=== PATIENT | male | born 1970 | race Hispanic/Latino ===

== ENCOUNTER 2018-09-02 15:28 | Emergency (ER) | payer OTHER ==
[2018-09-02 15:58] VITALS: BMI 37.5
[2018-09-02 15:59] VITALS: O2SAT 99
[2018-09-02] MEDS ORDERED: Sodium Chloride 0.9% 1,000 ML IV STA (16:56)
[2018-09-02 17:14] LABS: BASO # 0.1 K/uL (0.0-0.2); BASO % 0.9 % (0.0-2.0); EOS # 0.4 K/uL (0.0-0.7); EOS % 5.7 % (0.0-4.0); HEMOGLOBIN 14.7 g/dL (12.0-18.0); LYMPH % 28.2 % (20.0-40.0); MEAN CELL VOLUME 86.4 fl (80.0-94.0); MEAN CORPUSCULAR HEMOGLOBIN 28.9 pg (27.0-31.0); MEAN CORPUSCULAR HGB CONC 33.4 g/dL (33.0-37.0); MEAN PLATELET VOLUME 7.8 fl (7.2-11.7); MONO # 0.8 K/uL (0.0-0.8); MONO % 11.8 % (0.0-10.0); NEUT # 3.8 K/uL (1.8-7.0); NEUT % 53.4 % (50.0-75.0); NRBC % 0.1 % (0.0-0.0); RBC 5.1 Mil/uL (4.40-5.90); RED CELL DISTRIBUTION WIDTH 13.5 % (11.5-14.5); WHITE BLOOD COUNT 7.2 K/uL (4.8-10.8)
[2018-09-02 17:25] LABS: VENOUS BLOOD GAS BASE EXCESS 1.9 mmol/L (0.0-2.0); VENOUS BLOOD GAS PCO2 50 mmHg (40-60); VENOUS BLOOD GAS PO2 30 mm/Hg (30-55); VENOUS BLOOD PH 7.36 (7.32-7.43)
[2018-09-02 17:26] LABS: ALB/GLOB RATIO 1.6 (1.0-2.1); ALBUMIN 4.4 g/dL (3.5-5.0); ALT/SGPT 58 U/L (21-72); AST/SGOT 28 U/L (17-59); BLOOD UREA NITROGEN 17 mg/dl (9-20); CALCIUM 9.2 mg/dL (8.4-10.2); GFR NON-AFRICAN AMERICAN > 60
--- NOTE | 2018-09-02 18:19 | RAD ---
Date of service: 09/02/2018 HISTORY: cough COMPARISON: No prior. TECHNIQUE: Chest PA and lateral views FINDINGS: LUNGS: No active pulmonary disease. PLEURA: No significant pleural effusion identified. No pneumothorax apparent. CARDIOVASCULAR: No aortic atherosclerotic calcification present. Normal cardiac size. No pulmonary vascular congestion. OSSEOUS STRUCTURES: No significant abnormalities. VISUALIZED UPPER ABDOMEN: Normal. OTHER FINDINGS: None. IMPRESSION: No active disease.
--- NOTE | 2018-09-02 18:29 | ED PDOC ---
Syncope/Near Syncope/Dizziness Time Seen by Provider: 09/02/18 16:48 Chief Complaint (Nursing): Dizziness/Lightheaded Chief Complaint (Provider): Dizziness/Lightheaded History Per: Patient History/Exam Limitations: no limitations Onset/Duration Of Symptoms: Days Additional Complaint(s): Patient is a 48 year old male with no past medical history, who presents to the emergency department complaining of dizziness and chest pressure. He recently was in [facility] [place] when he started to have high altitude sickness. [place] before descending to [facility] and then flying back. He states the pain is constant. Patient went to urgent care today and was told to come to ED for full cardiac work up. He denies any nausea, vomiting, or diarrhea. PMD: no provider Past Medical History Reviewed: Historical Data, Nursing Documentation, Vital Signs Vital Signs: Last Vital Signs Temp 99.1 F 09/02/18 15:57 Pulse 70 09/02/18 15:57 Resp 18 09/02/18 15:57 BP 161/96 H 09/02/18 15:57 Pulse Ox 99 09/02/18 15:57 - Medical History PMH: No Chronic Diseases - Surgical History Surgical History: No Surg Hx - Family History Family History: States: Unknown Family Hx - Allergies Allergies/Adverse Reactions: Allergies Allergy/AdvReac Type Severity Reaction Status Date / Time No Known Allergies Allergy Verified 09/02/18 15:57 Review of Systems ROS Statement: Except As Marked, All Systems Reviewed And Found Negative Cardiovascular: Positive for: Chest Pain Gastrointestinal: Negative for: Nausea, Vomiting, Diarrhea Neurological: Positive for: Dizziness Physical Exam - Reviewed Nursing Documentation Reviewed: Yes Vital Signs Reviewed: Yes - Physical Exam Appears: Positive for: Non-toxic, No Acute Distress Head Exam: Positive for: ATRAUMATIC, NORMOCEPHALIC Skin: Positive for: Normal Color, Warm, Dry Eye Exam: Positive for: Normal appearance, EOMI, PERRL ENT: Positive for: Normal ENT Inspection Neck: Positive for: Normal, Painless ROM, Supple Cardiovascular/Chest: Positive for: Regular Rate, Rhythm. Negative for: Murmur Respiratory: Positive for: Normal Breath Sounds. Negative for: Respiratory Distress Gastrointestinal/Abdominal: Positive for: Normal Exam, Soft. Negative for: Tenderness Back: Positive for: Normal Inspection. Negative for: L CVA Tenderness, R CVA Tenderness, Vertebral Tenderness Extremity: Positive for: Normal ROM. Negative for: Pedal Edema, Deformity Neurological/Psych: Positive for: Alert, Oriented - Laboratory Results Result Diagrams: 09/02/18 17:06 09/02/18 17:06 Lab Results: pO2 30 mm/Hg (30-55) 09/02/18 17:15 VBG pH 7.36 (7.32-7.43) 09/02/18 17:15 VBG pCO2 50 mmHg (40-60) 09/02/18 17:15 VBG HCO3 25.2 mmol/L 09/02/18 17:15 VBG Total CO2 29.7 mmol/L (22-28) H 09/02/18 17:15 VBG O2 Sat (Calc) 60.1 % (40-65) 09/02/18 17:15 VBG Base Excess 1.9 mmol/L (0.0-2.0) 09/02/18 17:15 VBG Potassium 4.2 mmol/L (3.6-5.2) 09/02/18 17:15 Sodium 138.0 mmol/L (132-148) 09/02/18 17:15 Chloride 104.0 mmol/L (98-107) 09/02/18 17:15 Glucose 89 mg/dL (75-110) 09/02/18 17:15 Lactate 1.0 mmol/L (0.7-2.1) 09/02/18 17:15 FiO2 21.0 % 09/02/18 17:15 Troponin I < 0.0120 ng/mL (0.00-0.120) 09/02/18 17:06 Total Bilirubin 0.6 mg/dl (0.2-1.3) 09/02/18 17:06 AST 28 U/L (17-59) 09/02/18 17:06 ALT 58 U/L (21-72) 09/02/18 17:06 Alkaline Phosphatase 53 U/L (38-126) 09/02/18 17:06 Total Protein 7.2 G/DL (6.3-8.2) 09/02/18 17:06 Albumin 4.4 g/dL (3.5-5.0) 09/02/18 17:06 Globulin 2.8 gm/dL (2.2-3.9) 09/02/18 17:06 Albumin/Globulin Ratio 1.6 (1.0-2.1) 09/02/18 17:06 - ECG ECG Rhythm: Positive for: Normal QRS, Normal ST Segment, Sinus Rhythm Rate: 55 O2 Sat by Pulse Oximetry: 99 Medical Decision Making Medical Decision Making: Time: 1655 A/P: Work up for chest pressure with high altitude sickness. Will rule out cardiac etiology. Will obtain labs, IV fluids, Reglan and will reassess patient. Ekg VBG CMP Magnesium Phosphorous Troponin I Cbc with differential Chest xray Reglan 10 mg IVP Sodium chloride 1,000 ml Time: 1814 Chest xray FINDINGS: LUNGS: No active pulmonary disease. PLEURA: No significant pleural effusion identified. No pneumothorax apparent. CARDIOVASCULAR: No aortic atherosclerotic calcification present. Normal cardiac size. No pulmonary vascular congestion. OSSEOUS STRUCTURES: No significant abnormalities. VISUALIZED UPPER ABDOMEN: Normal. OTHER FINDINGS: None. IMPRESSION: No active disease. Time: 1825 --Patient work up was unremarkable and has reported to be feeling better. --Patient is currently declining referral for PMD. He is stating that he may be moving soon and will just use urgent care as needed. --Discussed return parameters with patient. Scribe Attestation: Documented by Popeye Pritchett, acting as a scribe Sarthak Galarza MD. Provider Scribe Attestation: All medical record entries made by the Scribe were at my direction and personally dictated by me. I have reviewed the chart and agree that the record accurately reflects my personal performance of the history, physical exam, medic al decision making, and the department course for this patient. I have also personally directed, reviewed, and agree with the discharge instructions and disposition. Disposition - Clinical Impression Clinical Impression: High altitude sickness, Dizziness - Disposition Disposition: Routine/Home Disposition Time: 18:26 Condition: IMPROVED Additional Instructions: Return to the emergency department if symptoms worsen or if new symptoms develop. Instructions: Altitude Sickness (Including Mountain Sickness), Dizziness, Nonvertigo, (DC) Forms: [employer] (Czech), [facility] ED School/Work Excuse Print Language: SLOVENIAN
[2018-09-02 18:40] VITALS: BP 148/92; RESP 16; TEMP 98.9
[2018-09-02 19:02] VITALS: PULSE 55
--- NOTE | 2018-09-02 21:02 | CARD ---
APPROVED REPORT Date of service: 09/02/2018 EKG Measurement Heart [id number] <Conclusion> Sinus bradycardia ST elevation, consider early repolarization, pericarditis, or injury Nonspecific ST and T wave abnormality Abnormal ECG
--- NOTE | 2018-09-02 21:02 | CARD ---
APPROVED REPORT Date of service: 09/02/2018 EKG Measurement Heart [id number] <Conclusion> Sinus bradycardia Minimal voltage criteria for LVH, may be normal variant ST elevation, probably due to early repolarization Nonspecific T wave abnormality Abnormal ECG
== END 2018-09-02 18:40 | disposition home or self-care (01) ==
LOC: H.ER 15:28
DX: T70.20XA Unspecified effects of high altitude, initial encounter (principal); W94.11XA Exposure to residence or prolonged visit at high altitude, initial encounter
CPT/HCPCS: 71046; 80053; 82803; 83735; 84100; 84484; 85025; 93005; 96361; 96374; 99283; J2765; J7030